=== PATIENT | male | born 1965 | race African-American/Black ===

== ENCOUNTER 2019-06-30 02:28 | Inpatient (IN) | payer MEDICAID ==
[~2019-06-30] VITALS: Ht 170.2 cm; Wt 59.0 kg
[~2019-06-30 02:28] MED LIST: ALBU2TAB44 GT; AMLO10TA4 PO; COM10 PO; FLUT1DIS3 IH; HYDR-3927 PO; LORA10TA7 PO; OMEP20CA4 PO; TRAM150C25 PO; TRIA1TAB3 PO
[2019-06-30] MEDS ORDERED: KETOROLAC 60MG/2ML VIAL IM ONE (03:00)
[2019-06-30 03:46] LABS: CHLORIDE 102 mEq/L (98-107)
[2019-06-30 03:50] LABS: ETHANOL BLOOD 91 mg/dL
[2019-06-30 04:23] LABS: HEMATOCRIT. 35.7 % (42.0-52.0); HEMOGLOBIN. 12.1 g/dL (14.0-18.0); MEAN CORPUSCULAR HEMOGLOBIN 30.8 pg (28.0-32.0); MEAN CORPUSCULAR VOLUME 90.8 fL (80.0-94.0); MEAN PLATELET VOLUME 8.3 fl (7.4-10.4); PLATELET 234 x1000/uL (130-400); RED BLOOD CELL COUNT 3.93 mill/uL (4.7-6.1); RED CELL DISTRIBUTION WIDTH 14.3 % (11.6-14.6)
[2019-06-30 04:46] LABS: CLARITY URINE CLEAR (CLEAR); COLOR URINE YELLOW (YELLOW); KETONES URINE TRACE (NEGATIVE); LEUKOCYTE ESTERASE URINE NEGATIVE (NEGATIVE); NITRITE URINE NEGATIVE (NEGATIVE); OCCULT BLOOD URINE NEGATIVE (NEGATIVE); PROTEIN URINE TRACE (NEGATIVE); SPECIFIC GRAVITY URINE 1.017 (1.005-1.030); UROBILINOGEN URINE 0.2 E.U./dL (0.2-1.0)
[2019-06-30] MEDS: SODIUM CHLORIDE 0.9% 1000ML BAG (SEPSIS BOLUS) IV NR ×2 (05:11→07:55)
[2019-06-30] MEDS ORDERED: MORPHINE SULFATE 4 MG/ML CPJ (NOT FOR IM USE) IV ONE (05:45)
[2019-06-30] MEDS ORDERED: LISI-604 MT (06:19)
[2019-06-30] MEDS ORDERED: SUCR1TAB30 PO (06:19)
[2019-06-30] MEDS ORDERED: FAMO20TA8 PO (06:19)
[2019-06-30 06:41] LABS: PLATELET ESTIMATE NORMAL
[2019-06-30 08:45] VITALS: BP 134/83
[2019-06-30] MEDS ORDERED: ACETAMINOPHEN 325MG TABLET PO PRN (08:45)
[2019-06-30] MEDS ORDERED: MAGNESIUM/ALUMINUM HYDROXIDE/SIMETHICONE 30ML UDC PO PRN (08:45)
[2019-06-30] MEDS: PANTOPRAZOLE SODIUM 40 MG/VIAL IV SCH (10:18)
[2019-06-30] MEDS: MORPHINE SULFATE 2 MG/ML CPJ (NOT FOR IM USE) IV PRN ×4 (10:20→22:54)
[2019-06-30 11:11] VITALS: BP 134/83
[2019-06-30 12:00] VITALS: BP 134/78
[2019-06-30] MEDS: DEXT 5%/0.45% NACL 1000ML 1,000 ML IV SCH ×2 (13:30→21:20)
[2019-06-30 16:00] VITALS: BP 137/81
[2019-06-30] MEDS: ONDANSETRON HCL 4MG/2ML INJ IV PRN (18:44)
[2019-06-30 20:00] VITALS: BP 135/81
[2019-07-01] VITALS: BP 140/75
[2019-07-01] MEDS: MORPHINE SULFATE 2 MG/ML CPJ (NOT FOR IM USE) IV PRN ×3 (03:05→20:02)
[2019-07-01 04:00] VITALS: BP 121/82
[2019-07-01 07:53] LABS: HEMATOCRIT. 33.7 % (42.0-52.0); HEMOGLOBIN. 11.4 g/dL (14.0-18.0); MEAN CORPUSCULAR HEMOGLOBIN 30.9 pg (28.0-32.0); MEAN CORPUSCULAR VOLUME 91.2 fL (80.0-94.0); MEAN PLATELET VOLUME 8.4 fl (7.4-10.4); PLATELET 220 x1000/uL (130-400); RED BLOOD CELL COUNT 3.69 mill/uL (4.7-6.1); RED CELL DISTRIBUTION WIDTH 14.1 % (11.6-14.6)
[2019-07-01 07:57] LABS: CHLORIDE 104 mEq/L (98-107)
[2019-07-01 08:00] VITALS: BP 150/91
[2019-07-01] MEDS: PANTOPRAZOLE SODIUM 40 MG/VIAL IV SCH (08:37)
[2019-07-01] MEDS: ONDANSETRON HCL 4MG/2ML INJ IV PRN (08:37)
[2019-07-01 09:45] LABS: PLATELET ESTIMATE NORMAL
[2019-07-01 09:50] LABS: *AMPHETAMINES SCREEN URINE NEGATIVE (NEGATIVE); *BARBITURATES SCREEN URINE NEGATIVE (NEGATIVE); *BENZODIAZEPINES SCREEN URINE NEGATIVE (NEGATIVE); *COCAINE SCREEN URINE NEGATIVE (NEGATIVE); METHADONE URINE SCREEN NEGATIVE (NEGATIVE); OPIATES URINE SCREEN NEGATIVE (NEGATIVE)
[2019-07-01 09:51] LABS: CANNABINOID URINE SCREEN PRESUMTIVE POSITIVE (NEGATIVE); PHENCYCLIDINE URINE SCREEN NEGATIVE (NEGATIVE)
[2019-07-01] MEDS: DEXT 5%/0.45% NACL 1000ML 1,000 ML IV SCH (10:53)
[2019-07-01 12:00] VITALS: BP 153/94
[2019-07-01 16:00] VITALS: BP 153/94
[2019-07-01 20:00] VITALS: BP 156/96
[2019-07-02] VITALS: BP 136/96
[2019-07-02] MEDS: MORPHINE SULFATE 2 MG/ML CPJ (NOT FOR IM USE) IV PRN ×2 (00:18→06:14)
[2019-07-02] MEDS: DEXT 5%/0.45% NACL 1000ML 1,000 ML IV SCH (02:17)
[2019-07-02 04:00] VITALS: BP 154/93
[2019-07-02 08:00] VITALS: BP 152/96
[2019-07-02] MEDS ORDERED: FAMOTIDINE 20MG/2ML VIAL IV SCH (09:00)
[2019-07-02 12:00] VITALS: BP 140/81
[2019-07-02 13:32] VITALS: BP 140/81
== END 2019-07-02 13:24 | disposition home or self-care (01) | DRG 282 ==
LOC: ER 02:28 → 6EST 05:39 → ENRESERV 07:41
PROVIDERS: ADMIT Hospitalist; ATTEND Hospitalist
DX: K85.90 Acute pancreatitis without necrosis or infection, unspecified (principal); F10.129 Alcohol abuse with intoxication, unspecified; F17.210 Nicotine dependence, cigarettes, uncomplicated; I10 Essential (primary) hypertension; J45.909 Unspecified asthma, uncomplicated; K86.1 Other chronic pancreatitis; Z79.899 Other long term (current) drug therapy
CPT/HCPCS: 36415; 71045; 74176; 80305; 80320; 81003; 84484; 93005; 99285; C9113; J1885; J2270; J2405; J3490; G0480

== ENCOUNTER 2019-07-31 05:44 | Inpatient (IN) | payer MEDICAID ==
[~2019-07-31] VITALS: Ht 172.7 cm; Wt 55.8 kg
[~2019-07-31 05:44] MED LIST changes: +FAMO20TA8 PO; +LISI-604 MT; +SUCR1TAB30 PO
[2019-07-31] MEDS ORDERED: ONDANSETRON HCL 4MG/2ML INJ IV ONE (09:30)
[2019-07-31] MEDS ORDERED: MORPHINE SULFATE 4 MG/ML CPJ (NOT FOR IM USE) IV ONE ×2 (09:30→11:30)
[2019-07-31 09:58] LABS: HEMATOCRIT. 37.3 % (42.0-52.0); HEMOGLOBIN. 12.6 g/dL (14.0-18.0); MEAN CORPUSCULAR HEMOGLOBIN 30.6 pg (28.0-32.0); MEAN CORPUSCULAR VOLUME 90.6 fL (80.0-94.0); PLATELET 311 x1000/uL (130-400); RED BLOOD CELL COUNT 4.11 mill/uL (4.7-6.1); RED CELL DISTRIBUTION WIDTH 14.1 % (11.6-14.6)
[2019-07-31 10:04] LABS: CHLORIDE 101 mEq/L (98-107)
[2019-07-31 10:07] LABS: PROTHROMBIN TIME 9.9 sec (9.6-11.0)
[2019-07-31 10:28] LABS: PLATELET ESTIMATE NORMAL
[2019-07-31 10:54] LABS: CLARITY URINE CLEAR (CLEAR); COLOR URINE YELLOW (YELLOW); KETONES URINE NEGATIVE (NEGATIVE); LEUKOCYTE ESTERASE URINE NEGATIVE (NEGATIVE); NITRITE URINE NEGATIVE (NEGATIVE); OCCULT BLOOD URINE NEGATIVE (NEGATIVE); PH URINE 5.5 (4.5-8.0); PROTEIN URINE NEGATIVE (NEGATIVE); SPECIFIC GRAVITY URINE 1.013 (1.005-1.030); UROBILINOGEN URINE 0.2 E.U./dL (0.2-1.0)
[2019-07-31 16:55] VITALS: BP 169/94
[2019-07-31 17:00] VITALS: BP 127/73
[2019-07-31] MEDS ORDERED: ACETAMINOPHEN 325MG TABLET PO PRN (19:30)
[2019-07-31] MEDS ORDERED: ONDANSETRON HCL 4MG/2ML INJ IV PRN (19:30)
[2019-07-31] MEDS ORDERED: IPRATROPIUM/ALBUTEROL 0.5-3(2.5)MG/3ML NEB HHN PRN (19:30)
[2019-07-31] MEDS ORDERED: LORAZEPAM 0.5MG TABLET PO PRN (19:30)
[2019-07-31] MEDS ORDERED: DOCUSATE SODIUM 100MG CAPSULE PO PRN (19:30)
[2019-07-31 20:00] VITALS: BP 148/85
[2019-07-31] MEDS: LORATADINE 10MG TABLET PO SCH (20:25)
[2019-07-31] MEDS: PANTOPRAZOLE 40MG DR TABLET PO SCH (20:25)
[2019-07-31] MEDS: SUCRALFATE 1G TABLET PO SCH (20:25)
[2019-07-31] MEDS: HYDROCODONE/ACETAMINOPHEN 5/325MG TABLET PO PRN (20:26)
[2019-07-31] MEDS: LISINOPRIL 20MG TABLET PO SCH (20:26)
[2019-07-31] MEDS: AMLODIPINE 10MG TABLET PO SCH (20:26)
[2019-07-31] MEDS: NICOTINE 21MG PATCH TD SCH (20:27)
[2019-07-31] MEDS: CHLORDIAZEPOXIDE 25MG CAPSULE PO SCH (21:29)
[2019-08-01] VITALS: BP 127/80
[2019-08-01] MEDS: HYDROCODONE/ACETAMINOPHEN 5/325MG TABLET PO PRN (00:25)
[2019-08-01 03:52] LABS: *AMPHETAMINES SCREEN URINE NEGATIVE (NEGATIVE); *BARBITURATES SCREEN URINE NEGATIVE (NEGATIVE)
[2019-08-01 03:53] LABS: *BENZODIAZEPINES SCREEN URINE NEGATIVE (NEGATIVE); *COCAINE SCREEN URINE NEGATIVE (NEGATIVE); METHADONE URINE SCREEN NEGATIVE (NEGATIVE); OPIATES URINE SCREEN PRESUMTIVE POSITIVE (NEGATIVE); PHENCYCLIDINE URINE SCREEN NEGATIVE (NEGATIVE)
[2019-08-01 03:54] LABS: CANNABINOID URINE SCREEN PRESUMTIVE POSITIVE (NEGATIVE)
[2019-08-01] MEDS: SUCRALFATE 1G TABLET PO SCH ×4 (06:05→20:11)
[2019-08-01] MEDS: CHLORDIAZEPOXIDE 25MG CAPSULE PO SCH ×3 (06:05→20:11)
[2019-08-01] MEDS: PANTOPRAZOLE 40MG DR TABLET PO SCH (06:05)
[2019-08-01] MEDS: SODIUM CHLORIDE 0.9% 1,000 ML IV SCH ×2 (07:16→21:47)
[2019-08-01 08:00] VITALS: BP 101/65
[2019-08-01] MEDS: LISINOPRIL 20MG TABLET PO SCH (09:00)
[2019-08-01] MEDS: AMLODIPINE 10MG TABLET PO SCH (09:00)
[2019-08-01] MEDS: LORATADINE 10MG TABLET PO SCH (09:15)
[2019-08-01] MEDS: NICOTINE 21MG PATCH TD SCH (09:16)
[2019-08-01 09:43] LABS: BASOPHILS % 0.3 % (0.0-2.0); EOSINOPHILS % 1.1 % (0.0-5.0); HEMATOCRIT. 38.4 % (42.0-52.0); HEMOGLOBIN. 12.9 g/dL (14.0-18.0); LYMPHOCYTES % 16.1 % (20.0-50.0); MEAN CORPUSCULAR HEMOGLOBIN 30.4 pg (28.0-32.0); MEAN CORPUSCULAR VOLUME 90.8 fL (80.0-94.0); MEAN PLATELET VOLUME 8.2 fl (7.4-10.4); MONOCYTES % 10.1 % (2.0-8.0); NEUTROPHILS % 72.4 % (40.0-76.0); PLATELET 293 x1000/uL (130-400); RED BLOOD CELL COUNT 4.23 mill/uL (4.7-6.1); RED CELL DISTRIBUTION WIDTH 13.9 % (11.6-14.6)
[2019-08-01 10:01] LABS: CHLORIDE 97 mEq/L (98-107)
[2019-08-01 10:08] LABS: PHOSPHORUS 2.6 mg/dL (2.5-4.9)
[2019-08-01 10:09] LABS: TOTAL IRON BINDING CAPACITY 280 ug/dL (250-450)
[2019-08-01 10:26] LABS: FOLIC ACID (FOLATE) SERUM 18.1 ng/mL (>5.38)
[2019-08-01] MEDS: MORPHINE SULFATE 2 MG/ML CPJ (NOT FOR IM USE) IV PRN ×2 (10:45→20:14)
[2019-08-01 12:00] VITALS: BP 111/80
[2019-08-01 16:00] VITALS: BP 116/87
[2019-08-01 20:00] VITALS: BP 124/85
[2019-08-02] VITALS: BP 108/78
[2019-08-02] MEDS: HYDROCODONE/ACETAMINOPHEN 10/325MG TABLET PO PRN (00:29)
[2019-08-02 04:00] VITALS: BP 125/83
[2019-08-02] MEDS: MORPHINE SULFATE 2 MG/ML CPJ (NOT FOR IM USE) IV PRN ×3 (04:19→20:53)
[2019-08-02] MEDS: SUCRALFATE 1G TABLET PO SCH ×4 (06:10→20:56)
[2019-08-02] MEDS: PANTOPRAZOLE 40MG DR TABLET PO SCH (06:10)
[2019-08-02] MEDS: CHLORDIAZEPOXIDE 25MG CAPSULE PO SCH ×3 (06:10→20:57)
[2019-08-02] MEDS: SODIUM CHLORIDE 0.9% 1,000 ML IV SCH ×2 (06:48→16:41)
[2019-08-02 07:04] LABS: CHLORIDE 101 mEq/L (98-107)
[2019-08-02 07:19] LABS: BASOPHILS % 0.7 % (0.0-2.0); EOSINOPHILS % 1.8 % (0.0-5.0); HEMATOCRIT. 36.3 % (42.0-52.0); LYMPHOCYTES % 27.3 % (20.0-50.0); MEAN PLATELET VOLUME 8.6 fl (7.4-10.4); MONOCYTES % 12.5 % (2.0-8.0); NEUTROPHILS % 57.7 % (40.0-76.0); PLATELET 299 x1000/uL (130-400); RED BLOOD CELL COUNT 3.99 mill/uL (4.7-6.1)
[2019-08-02 08:00] VITALS: BP 133/93
[2019-08-02] MEDS: AMLODIPINE 10MG TABLET PO SCH (08:21)
[2019-08-02] MEDS: CLONIDINE 0.1MG TABLET PO PRN (08:22)
[2019-08-02] MEDS: NICOTINE 21MG PATCH TD SCH (08:22)
[2019-08-02] MEDS: LORATADINE 10MG TABLET PO SCH (08:22)
[2019-08-02] MEDS: LISINOPRIL 20MG TABLET PO SCH (08:22)
[2019-08-02] MEDS ORDERED: POTASSIUM CHLORIDE 20MEQ TABLET SR PO SCH (12:00)
[2019-08-02] MEDS: GUAIFENESIN-DM 200MG-20MG/10ML UDC PO PRN ×2 (12:23→20:56)
[2019-08-02 16:00] VITALS: BP 134/85
[2019-08-02 20:00] VITALS: BP 127/90
[2019-08-02 22:00] VITALS: BP 110/71
[2019-08-03] VITALS: BP 110/71
[2019-08-03] MEDS: HYDROCODONE/ACETAMINOPHEN 10/325MG TABLET PO PRN (00:18)
[2019-08-03 04:00] VITALS: BP 126/87
[2019-08-03] MEDS: MORPHINE SULFATE 2 MG/ML CPJ (NOT FOR IM USE) IV PRN ×2 (06:31→16:48)
[2019-08-03] MEDS: SUCRALFATE 1G TABLET PO SCH ×4 (06:31→21:00)
[2019-08-03] MEDS: PANTOPRAZOLE 40MG DR TABLET PO SCH (06:31)
[2019-08-03] MEDS: CHLORDIAZEPOXIDE 25MG CAPSULE PO SCH ×3 (06:32→21:00)
[2019-08-03] MEDS: SODIUM CHLORIDE 0.9% 1,000 ML IV SCH ×2 (06:32→17:40)
[2019-08-03 07:47] LABS: CHLORIDE 99 mEq/L (98-107)
[2019-08-03 07:59] LABS: HEMATOCRIT. 36.3 % (42.0-52.0); HEMOGLOBIN. 12.2 g/dL (14.0-18.0); MEAN CORPUSCULAR HEMOGLOBIN 30.6 pg (28.0-32.0); MEAN CORPUSCULAR VOLUME 90.9 fL (80.0-94.0); MEAN PLATELET VOLUME 8.9 fl (7.4-10.4); PLATELET 290 x1000/uL (130-400); RED BLOOD CELL COUNT 3.99 mill/uL (4.7-6.1); RED CELL DISTRIBUTION WIDTH 13.9 % (11.6-14.6)
[2019-08-03 08:00] VITALS: BP 105/73
[2019-08-03] MEDS: LISINOPRIL 20MG TABLET PO SCH (08:42)
[2019-08-03] MEDS: AMLODIPINE 10MG TABLET PO SCH (08:42)
[2019-08-03] MEDS: LORATADINE 10MG TABLET PO SCH (08:47)
[2019-08-03] MEDS: NICOTINE 21MG PATCH TD SCH (08:48)
[2019-08-03] MEDS: GUAIFENESIN-DM 200MG-20MG/10ML UDC PO PRN (08:57)
[2019-08-03] MEDS ORDERED: SORBITOL 70% SOLN 30ML PO NR (10:30)
[2019-08-03 11:23] LABS: PLATELET ESTIMATE NORMAL
[2019-08-03 12:00] VITALS: BP 126/92
[2019-08-03 16:00] VITALS: BP 119/83
[2019-08-03 20:00] VITALS: BP 135/97
[2019-08-03] MEDS: CLONIDINE 0.1MG TABLET PO PRN (20:59)
[2019-08-04] VITALS: BP 128/92
[2019-08-04] MEDS: MORPHINE SULFATE 2 MG/ML CPJ (NOT FOR IM USE) IV PRN ×3 (00:55→20:34)
[2019-08-04 04:00] VITALS: BP 129/51
[2019-08-04] MEDS: PANTOPRAZOLE 40MG DR TABLET PO SCH (06:25)
[2019-08-04] MEDS: SODIUM CHLORIDE 0.9% 1,000 ML IV SCH (06:25)
[2019-08-04] MEDS: SUCRALFATE 1G TABLET PO SCH ×4 (06:25→21:10)
[2019-08-04] MEDS: CHLORDIAZEPOXIDE 25MG CAPSULE PO SCH ×3 (06:25→21:10)
[2019-08-04] MEDS: GUAIFENESIN-DM 200MG-20MG/10ML UDC PO PRN ×2 (06:46→20:40)
[2019-08-04 06:55] LABS: BASOPHILS % 0.5 % (0.0-2.0); EOSINOPHILS % 1.7 % (0.0-5.0); HEMATOCRIT. 40.5 % (42.0-52.0); HEMOGLOBIN. 13.4 g/dL (14.0-18.0); LYMPHOCYTES % 19.7 % (20.0-50.0); MEAN CORPUSCULAR HEMOGLOBIN 30.2 pg (28.0-32.0); MEAN CORPUSCULAR VOLUME 91.2 fL (80.0-94.0); MEAN PLATELET VOLUME 8.8 fl (7.4-10.4); MONOCYTES % 11.4 % (2.0-8.0); NEUTROPHILS % 66.7 % (40.0-76.0); PLATELET 297 x1000/uL (130-400); RED BLOOD CELL COUNT 4.44 mill/uL (4.7-6.1); RED CELL DISTRIBUTION WIDTH 13.9 % (11.6-14.6)
[2019-08-04 07:12] LABS: CHLORIDE 102 mEq/L (98-107)
[2019-08-04 08:00] VITALS: BP 108/81
[2019-08-04] MEDS: LISINOPRIL 20MG TABLET PO SCH (09:00)
[2019-08-04] MEDS: AMLODIPINE 10MG TABLET PO SCH (09:00)
[2019-08-04] MEDS: LORATADINE 10MG TABLET PO SCH (09:29)
[2019-08-04] MEDS: NICOTINE 21MG PATCH TD SCH (09:29)
[2019-08-04] MEDS: HYDROCODONE/ACETAMINOPHEN 10/325MG TABLET PO PRN (09:43)
[2019-08-04 12:00] VITALS: BP 112/80
[2019-08-04 16:01] VITALS: BP 104/72
[2019-08-04 20:00] VITALS: BP 119/86
[2019-08-05] VITALS: BP 114/85
[2019-08-05 04:00] VITALS: BP 123/87
[2019-08-05] MEDS: MORPHINE SULFATE 2 MG/ML CPJ (NOT FOR IM USE) IV PRN (05:04)
[2019-08-05] MEDS: SUCRALFATE 1G TABLET PO SCH ×2 (06:42→11:35)
[2019-08-05] MEDS: CHLORDIAZEPOXIDE 25MG CAPSULE PO SCH ×2 (06:42→13:53)
[2019-08-05] MEDS: PANTOPRAZOLE 40MG DR TABLET PO SCH (06:43)
[2019-08-05 08:00] VITALS: BP 133/85
[2019-08-05] MEDS: LISINOPRIL 20MG TABLET PO SCH (08:12)
[2019-08-05] MEDS: AMLODIPINE 10MG TABLET PO SCH (08:12)
[2019-08-05] MEDS: LORATADINE 10MG TABLET PO SCH (08:12)
[2019-08-05] MEDS: NICOTINE 21MG PATCH TD SCH (08:13)
[2019-08-05 08:26] LABS: HEMOGLOBIN. 12.1 g/dL (14.0-18.0); MEAN CORPUSCULAR HEMOGLOBIN 29.7 pg (28.0-32.0); MEAN CORPUSCULAR VOLUME 90.9 fL (80.0-94.0); MEAN PLATELET VOLUME 9.1 fl (7.4-10.4); PLATELET 271 x1000/uL (130-400); RED BLOOD CELL COUNT 4.07 mill/uL (4.7-6.1); RED CELL DISTRIBUTION WIDTH 13.7 % (11.6-14.6)
[2019-08-05 08:33] LABS: CHLORIDE 102 mEq/L (98-107)
[2019-08-05 12:00] VITALS: BP 119/78
[2019-08-05] MEDS ORDERED: LISI-604 MT (12:08)
[2019-08-05] MEDS ORDERED: LORA10TA7 PO (12:08)
[2019-08-05] MEDS ORDERED: AMLO10TA4 PO (12:08)
[2019-08-05] MEDS ORDERED: HYDR-4001 MT (12:08)
[2019-08-05] MEDS ORDERED: SUCR1TAB30 PO (12:08)
[2019-08-05] MEDS ORDERED: MAX25 MT (12:08)
[2019-08-05 14:19] LABS: PLATELET ESTIMATE NORMAL
[2019-08-05 14:40] VITALS: BP 133/85
== END 2019-08-05 15:05 | disposition home or self-care (01) | DRG 241 ==
LOC: ER 05:57 → 6EST 12:18 → ENRESERV 15:47 → 6EST 08-05 05:24
PROVIDERS: ADMIT Internal Medicine; ATTEND Internal Medicine
DX: K29.70 Gastritis, unspecified, without bleeding (principal); D64.9 Anemia, unspecified; K52.9 Noninfective gastroenteritis and colitis, unspecified; F10.20 Alcohol dependence, uncomplicated; K21.9 Gastro-esophageal reflux disease without esophagitis; J45.909 Unspecified asthma, uncomplicated; D72.821 Monocytosis (symptomatic); F17.210 Nicotine dependence, cigarettes, uncomplicated; I10 Essential (primary) hypertension; K59.00 Constipation, unspecified; Z90.89 Acquired absence of other organs; Z79.899 Other long term (current) drug therapy
CPT/HCPCS: 36415; 71101; 74176; 80048; 80053; 80305; 80320; 81003; 82270; 82607; 82746; 82962; 83540; 83550; 83735; 84100; 85025; 94640; 96374; 96375; 96376; 99285; C1893; J2270; J2405; J7030

== ENCOUNTER 2019-08-06 02:58 | Emergency (ER) | payer MEDICAID ==
[~2019-08-06 02:58] MED LIST changes: +HYDR-4001 MT; +MAX25 MT
== END 2019-08-06 03:20 | disposition left against medical advice (07) ==
LOC: ER 02:58
DX: R68.89 Other general symptoms and signs (principal); Z53.21 Procedure and treatment not carried out due to patient leaving prior to being seen by health care provider

== ENCOUNTER 2019-08-21 21:31 | Emergency (ER) | payer MEDICAID ==
[~2019-08-21] VITALS: Ht 162.6 cm; Wt 60.0 kg
[2019-08-22] MEDS ORDERED: SODIUM CHLORIDE 0.9% 1,000 ML IV ONE
[2019-08-22] MEDS ORDERED: ACETAMINOPHEN 500MG TABLET PO ONE
[2019-08-22 00:32] LABS: CHLORIDE 108 mEq/L (98-107)
[2019-08-22 00:36] LABS: BASOPHILS % 0.6 % (0.0-2.0); EOSINOPHILS % 1.1 % (0.0-5.0); HEMATOCRIT. 32.6 % (42.0-52.0); LYMPHOCYTES % 22.3 % (20.0-50.0); MEAN CORPUSCULAR VOLUME 89.1 fL (80.0-94.0); MEAN PLATELET VOLUME 8.1 fl (7.4-10.4); MONOCYTES % 12.2 % (2.0-8.0); NEUTROPHILS % 63.8 % (40.0-76.0); PLATELET 363 x1000/uL (130-400); RED BLOOD CELL COUNT 3.66 mill/uL (4.7-6.1)
[2019-08-22 00:39] LABS: PROTHROMBIN TIME 10.3 sec (9.6-11.0)
[2019-08-22] MEDS ORDERED: MORPHINE SULFATE 4 MG/ML CPJ (NOT FOR IM USE) IV ONE (02:00)
[2019-08-22] MEDS ORDERED: ONDANSETRON HCL 4MG/2ML INJ IV ONE (02:00)
[2019-08-22] MEDS ORDERED: IOHEXOL-300 100 ML BOTTLE ONE (02:57)
[2019-08-22] MEDS ORDERED: IBUPROFEN 600MG TABLET PO ONE (06:00)
[2019-08-22 06:06] VITALS: BP 115/74
== END 2019-08-22 06:40 | disposition home or self-care (01) ==
LOC: ER 21:31
DX: L72.3 Sebaceous cyst (principal); I10 Essential (primary) hypertension; J45.909 Unspecified asthma, uncomplicated; F12.10 Cannabis abuse, uncomplicated; F17.200 Nicotine dependence, unspecified, uncomplicated; Z79.899 Other long term (current) drug therapy; Z90.49 Acquired absence of other specified parts of digestive tract
CPT/HCPCS: 36415; 70491; 80053; 85025; 85610; 96374; 96375; 99284; J2270; J2405; J7030; Q9967; Z7610

== ENCOUNTER 2024-04-04 20:32 | Inpatient (IN) | payer MEDICAID, OTHER ==
[~2024-04-04] VITALS: Ht 172.7 cm; Wt 44.5 kg
[~2024-04-04 20:32] MED LIST changes: +ALBU2 GT; -ALBU2TAB44 GT; -COM10 PO; -LISI-604 MT; +LISI20TA31 MT; +PROC10TA65 PO
[2024-04-04] MEDS: ONDANSETRON HCL 4MG/2ML INJ IV STA (21:54)
[2024-04-04] MEDS: KETOROLAC 30MG/ML VIAL IV STA (21:54)
[2024-04-04] MEDS: ASPIRIN 81MG TABLET PO ONE (22:00)
[2024-04-04] MEDS: FAMOTIDINE 20MG/2ML VIAL IV ONE (22:00)
[2024-04-04] MEDS: SODIUM CHLORIDE 0.9% 1,000 ML IV ONE (22:00)
[2024-04-04 22:51] VITALS: PULSE 74; RESP 20; O2SAT 99
[2024-04-04] MEDS: ALBUTEROL (0.083%) 2.5MG/3ML NEB HHN ONE (22:51)
[2024-04-04 23:06] LABS: BASOPHILS % 0.2 % (0.0-2.0); EOSINOPHILS % 0.5 % (0.0-5.0); HEMATOCRIT. 34.6 % (42.0-52.0); HEMOGLOBIN. 11.7 g/dL (14.0-18.0); LYMPHOCYTES % 13.7 % (20.0-50.0); MEAN CORPUSCULAR HEMOGLOBIN 30.7 pg (28.0-32.0); MEAN CORPUSCULAR HGB CONC 33.8 g/dL (31.0-37.0); MEAN CORPUSCULAR VOLUME 90.8 fL (80.0-94.0); MONOCYTES % 10.7 % (2.0-8.0); NEUTROPHILS % 74.9 % (40.0-76.0); PLATELET 194 x1000/uL (130-400); RED BLOOD CELL COUNT 3.81 mill/uL (4.7-6.1); RED CELL DISTRIBUTION WIDTH 14.7 % (11.6-14.6); WHITE BLOOD COUNT 11.7 x1000/uL (4.5-11.0)
[2024-04-04 23:10] LABS: CHLORIDE 94 mEq/L (98-107); POTASSIUM 4.2 mEq/L (3.5-5.1); SODIUM 129 mEq/L (136-145)
[2024-04-04 23:11] LABS: CALCIUM 10.1 mg/dL (8.7-10.4); CARBON DIOXIDE 29 mEq/L (21-32)
[2024-04-04 23:16] LABS: CREATININE 0.8 mg/dL (0.6-1.3); GLUCOSE 94 mg/dL (70-105)
[2024-04-04 23:18] LABS: ALANINE AMINOTRANSFERASE 36 IU/L (10-49); ALBUMIN 4.6 g/dL (3.2-4.8); ASPARTATE AMINOTRANSFERASE 55 IU/L (<34); BILIRUBIN TOTAL 1.4 mg/dL (0.1-1.0); ETHANOL BLOOD < 10 mg/dL (<10); PROTEIN TOTAL 8.6 g/dL (6.0-8.3); TROPONIN I HIGH SENSITIVITY 10 ng/L (3.0-53); UREA NITROGEN BLOOD < 5 mg/dL (9-23)
[2024-04-04] MEDS: FAMOTIDINE 20MG/2ML VIAL IV NR (23:47)
[2024-04-04] MEDS: KETOROLAC 30MG/ML VIAL IV NR (23:47)
[2024-04-04] MEDS: ONDANSETRON HCL 4MG/2ML INJ IV NR (23:48)
[2024-04-04] MEDS: PREDNISONE 20MG TABLET PO NR (23:48)
[2024-04-04] MEDS: ASPIRIN 81MG TABLET PO NR (23:48)
[2024-04-04] MEDS: PREDNISONE 20MG TABLET PO ONE (23:50)
[2024-04-05] MEDS: MORPHINE SULFATE 4 MG/ML INJ (FOR IV/IM USE) IV STA (00:45)
[2024-04-05] MEDS: ONDANSETRON HCL 4MG/2ML INJ IV STA (00:45)
[2024-04-05] MEDS: MORPHINE SULFATE 4 MG/ML INJ (FOR IV/IM USE) IV NR (03:08)
[2024-04-05] MEDS: ONDANSETRON HCL 4MG/2ML INJ IV NR (03:08)
[2024-04-05] MEDS ORDERED: ONDANSETRON HCL 4MG/2ML INJ IV PRN (09:15)
[2024-04-05] MEDS ORDERED: ACETAMINOPHEN 325MG TABLET PO PRN ×2 (09:15)
[2024-04-05] MEDS ORDERED: IPRATROPIUM/ALBUTEROL 0.5-3(2.5)MG/3ML NEB HHN PRN (09:15)
[2024-04-05] MEDS ORDERED: CLONIDINE 0.1MG TABLET PO PRN (09:15)
[2024-04-05] MEDS ORDERED: MAGNESIUM/ALUMINUM HYDROXIDE/SIMETHICONE 30ML UDC PO PRN (09:15)
[2024-04-05] MEDS ORDERED: DOCUSATE SODIUM 100MG CAPSULE PO PRN (09:15)
[2024-04-05] MEDS: KETOROLAC 15MG/ML VIAL IV PRN (10:01)
[2024-04-05] MEDS: ENOXAPARIN 40MG/0.4ML SYR SUBCUT SCH (10:04)
[2024-04-05] MEDS ORDERED: LORAZEPAM 2MG/ML INJ IV PRN (12:30)
[2024-04-05] MEDS: PANTOPRAZOLE SODIUM 40 MG/VIAL IV SCH (13:56)
[2024-04-05 16:31] VITALS: BP 149/94; PULSE 68; RESP 20; TEMP 36.89184; O2SAT 100
[2024-04-05 16:53] VITALS: BP 149/94; PULSE 68; RESP 20; TEMP 36.9184
[2024-04-05 17:51] LABS: SODIUM URINE RANDOM 59 mEq/L
[2024-04-05 17:54] LABS: CLARITY URINE CLEAR (CLEAR); COLOR URINE DARK YELLOW (YELLOW); GLUCOSE URINE NEGATIVE (NEGATIVE); KETONES URINE TRACE (NEGATIVE); LEUKOCYTE ESTERASE URINE TRACE (NEGATIVE); NITRITE URINE NEGATIVE (NEGATIVE); OCCULT BLOOD URINE NEGATIVE (NEGATIVE); OSMOLALITY URINE 511 mOsm/kg (500-850); PROTEIN URINE TRACE (NEGATIVE); SPECIFIC GRAVITY URINE 1.018 (1.005-1.030)
[2024-04-05 17:58] LABS: *AMPHETAMINES SCREEN URINE NEGATIVE (NEGATIVE); *BARBITURATES SCREEN URINE NEGATIVE (NEGATIVE); *BENZODIAZEPINES SCREEN URINE NEGATIVE (NEGATIVE); *COCAINE SCREEN URINE NEGATIVE (NEGATIVE); CANNABINOID URINE SCREEN PRESUMPTIVE POSITIVE (NEGATIVE); METHADONE URINE SCREEN NEGATIVE (NEGATIVE); OPIATES URINE SCREEN PRESUMPTIVE POSITIVE (NEGATIVE); PHENCYCLIDINE URINE SCREEN NEGATIVE (NEGATIVE)
[2024-04-05 17:59] LABS: ECSTASY MDMA SCREEN URINE NEGATIVE (NEGATIVE)
[2024-04-05 18:14] LABS: BACTERIA URINE TRACE; RBC URINE NONE SEEN /hpf (0-2); SQUAMOUS EPITHELIAL CELL URINE FEW /lpf (RARE/1+); WBC URINE 0-2 /hpf (0-2)
[2024-04-06 00:44] LABS: TROPONIN I HIGH SENSITIVITY 10 ng/L (3.0-53)
[2024-04-06 07:37] LABS: CARBON DIOXIDE 28 mEq/L (21-32); CHLORIDE 97 mEq/L (98-107); POTASSIUM 3.3 mEq/L (3.5-5.1); SODIUM 130 mEq/L (136-145)
[2024-04-06 07:38] LABS: CALCIUM 9.3 mg/dL (8.7-10.4)
[2024-04-06 07:43] LABS: CREATININE 0.7 mg/dL (0.6-1.3); GLUCOSE 97 mg/dL (70-105); TRIGLYCERIDE 89 mg/dL (0-150); UREA NITROGEN BLOOD 6 mg/dL (9-23)
[2024-04-06 07:44] LABS: LDL CHOLESTEROL 30 mg/dL (5-100); T4 FREE 1.02 ng/dL (0.89-1.76)
[2024-04-06 07:45] LABS: CHOLESTEROL 142 mg/dL (<200); HDL CHOLESTEROL 88 mg/dL (>55); THYROID STIMULATING HORMONE 1.41 uIU/mL (0.55-4.78)
[2024-04-06 07:57] LABS: BASOPHILS % 0.2 % (0.0-2.0); EOSINOPHILS % 0.6 % (0.0-5.0); HEMATOCRIT. 33.1 % (42.0-52.0); HEMOGLOBIN. 11.2 g/dL (14.0-18.0); MEAN CORPUSCULAR HEMOGLOBIN 30.8 pg (28.0-32.0); MEAN CORPUSCULAR HGB CONC 33.7 g/dL (31.0-37.0); MEAN CORPUSCULAR VOLUME 91.5 fL (80.0-94.0); MEAN PLATELET VOLUME 9.1 fl (7.4-10.4); MONOCYTES % 12.5 % (2.0-8.0); NEUTROPHILS % 68.7 % (40.0-76.0); PLATELET 190 x1000/uL (130-400); RED BLOOD CELL COUNT 3.62 mill/uL (4.7-6.1); RED CELL DISTRIBUTION WIDTH 14.4 % (11.6-14.6); WHITE BLOOD COUNT 10.1 x1000/uL (4.5-11.0)
[2024-04-06 08:00] VITALS: BP 137/106; PULSE 88; RESP 18; TEMP 36.61404; O2SAT 98
[2024-04-06] MEDS: POTASSIUM CHLORIDE 20MEQ/PACKET PO NR (08:11)
[2024-04-06 11:01] VITALS: BP 144/93; PULSE 88; TEMP 97.9; O2SAT 98
[2024-04-06 12:00] VITALS: BP 153/98; PULSE 81; RESP 22; TEMP 36.61404; O2SAT 98
[2024-04-07] MEDS ORDERED: FAMOTIDINE 20MG/2ML VIAL IV SCH (09:00)
== END 2024-04-06 14:00 | disposition home or self-care (01) | DRG 241 ==
LOC: ER 20:32 → 5WST 04-05 01:03 → 3WST 04-05 16:27
PROVIDERS: ADMIT Internal Medicine; ATTEND Internal Medicine
DX: K29.70 Gastritis, unspecified, without bleeding (principal); E87.1 Hypo-osmolality and hyponatremia; J45.901 Unspecified asthma with (acute) exacerbation; K21.9 Gastro-esophageal reflux disease without esophagitis; K86.1 Other chronic pancreatitis; I25.10 Atherosclerotic heart disease of native coronary artery without angina pectoris; F10.10 Alcohol abuse, uncomplicated; I10 Essential (primary) hypertension; E86.0 Dehydration; Z59.00 Homelessness unspecified; F17.210 Nicotine dependence, cigarettes, uncomplicated; F12.90 Cannabis use, unspecified, uncomplicated; Z91.148 Patient's other noncompliance with medication regimen for other reason; Z82.49 Family history of ischemic heart disease and other diseases of the circulatory system; Z83.3 Family history of diabetes mellitus; Z90.49 Acquired absence of other specified parts of digestive tract
CPT/HCPCS: 36415; 71045; 74176; 80048; 80053; 80061; 80305; 80320; 81003; 83880; 83930; 83935; 84300; 84439; 84443; 84484; 85025; 93005; 94640; 99285; J1650; J1885; J2270; J2405; J2470; J3490; J7030; J7512; G0480